=== PATIENT | male | born 1970 | race Two or more races ===

== ENCOUNTER 2016-10-17 11:19 | Day surgery (SDC) | payer BC, OTHER ==
[2016-10-17] MEDS ORDERED: PROPOFOL 200 MG/20 ML BOTTLE IV ONE (11:20)
[2016-10-17 12:12] LABS: BASOPHILS # (AUTO) 0.1 K/uL (0.0-8.0); BASOPHILS % (AUTO) 0.5 % (0.0-2.0); EOSINOPHILS % (AUTO) 0.4 % (0.0-7.0); HEMATOCRIT 48.7 % (40-50); HEMOGLOBIN 16.4 G/DL (14.0-18.0); LYMPHOCYTES # (AUTO) 0.8 K/UL (0.8-4.8); LYMPHOCYTES % (AUTO) 6.4 % (20.5-51.5); MEAN CORPUSCULAR HEMOGLOBIN 27.8 UUG (27.0-31.0); MEAN CORPUSCULAR HGB CONC 34 g/dL (32.0-37.0); MEAN CORPUSCULAR VOLUME 82.4 FL (82.0-92.0); MONOCYTES # (AUTO) 0.3 K/UL (0.1-1.30); MONOCYTES % (AUTO) 2.6 % (0.0-11.0); NEUTROPHILS % (AUTO) 90.1 % (38.5-71.5); PLATELET COUNT (AUTO) 264 K/UL (150-450); RED BLOOD CELL COUNT(AUTO) 5.91 MIL/UL (4.7-6.1); WHITE BLOOD COUNT (AUTO) 12.2 K/UL (4.0-11.2)
[2016-10-17 12:14] LABS: CREATININE 0.9 mg/dL (0.6-1.3); POTASSIUM 3.5 mmol/L (3.5-5.1)
[2016-10-17 12:28] LABS: *BILIRUBIN,URIN NEGATIVE (NEGATIVE); *BLOOD, URINE Trace-lysed (NEGATIVE); *CLARITY,URINE CLEAR (CLEAR); *COLOR,URINE YELLOW (YELLOW); *KETONES,URINE NEGATIVE (NEGATIVE); *PROTEIN,URINE NEGATIVE (NEGATIVE); *UROBILINOGEN,URINE 0.2 E.U./dl (NORMAL); LEUKOCYTE ESTERASE ,URINE NEGATIVE (NEGATIVE); NITRITE, URINE NEGATIVE (NEGATIVE); PH,URINE 5.5 (5.0-8.0); UGLUCOSE NEGATIVE (NEGATIVE)
[2016-10-17 12:51] LABS: BACTERIA,URINE NONE SEEN /HPF (NONE SEEN); MUCUS,URINE FEW /LPF (0-FEW); RBC,URINE 0-3 /HPF (0-3); SQUAMOUS EPITHELIAL CELL,UR FEW /HPF (NONE SEEN); WBC,URINE 0-3 /HPF (0-3)
[2016-10-17 14:17] LABS: BAND % (MANUAL) 5 % (0-10); LYMPHOCYTES % (MANUAL) 7 % (20-40); MONOCYTES % (MANUAL) 7 % (2-10); NEUTROPHILS % (MANUAL) 81 % (42-75)
== END 2016-10-17 15:30 | disposition home or self-care (01) ==
LOC: DS 11:19
PROVIDERS: ATTEND Internal Medicine Gastroenterology
DX: D64.9 Anemia, unspecified (principal); K22.10 Ulcer of esophagus without bleeding; K29.70 Gastritis, unspecified, without bleeding; I10 Essential (primary) hypertension; Z98.890 Other specified postprocedural states
CPT/HCPCS: 36415; 85025; 85610; 85730; A4217; A4663; J3490; J7120

== ENCOUNTER 2023-04-04 20:18 | Inpatient (IN) | payer BC, OTHER ==
[~2023-04-04] VITALS: Ht 165.1 cm; Wt 79.2 kg
[2023-04-04] MEDS ORDERED: REMEDY ESSENTIAL ZINC PASTE 113 GM TOP PRN (22:15)
[2023-04-04 22:19] VITALS: BP 128/69; TEMP 98.1; O2SAT 95
[2023-04-04] MEDS ORDERED: ACET325C7 PO (22:52)
[2023-04-04] MEDS ORDERED: DOCU100C36 PO (22:52)
[2023-04-04] MEDS ORDERED: MAGN400O6 PO (22:52)
[2023-04-04] MEDS ORDERED: HYDR1SYR IV (22:52)
[2023-04-04] MEDS ORDERED: PANT40TA2 PO (22:52)
[2023-04-04] MEDS ORDERED: ONDA2VIA4 IVP (22:52)
[2023-04-04] MEDS ORDERED: RING10003 IV (23:09)
[2023-04-04] MEDS ORDERED: ZINC113P3 TP (23:09)
[2023-04-04] MEDS ORDERED: ZOLP5TAB8 PO (23:09)
[2023-04-04] MEDS ORDERED: SODI62.58 IV (23:09)
[2023-04-05 04:47] VITALS: BP 134/75; TEMP 97.6; O2SAT 94
[2023-04-05 08:00] VITALS: BP 130/78; TEMP 97.5; O2SAT 95
[2023-04-05 14:49] VITALS: BP 128/75; TEMP 97.8; O2SAT 96
[2023-04-06 07:26] VITALS: BP 124/73; TEMP 98.3; O2SAT 94
[2023-04-06 07:32] LABS: ALANINE AMINOTRANSFERASE 8 U/L (16-63); ALBUMIN 2.1 g/dL (3.4-5.0); ALKALINE PHOSPHATASE 91 U/L (50-136); ASPARTATE AMINOTRANSFERASE 6 U/L (15-37); BILIRUBIN,TOTAL 0.5 mg/dL (0.2-1.0); CALCIUM 8.2 mg/dL (8.5-10.1); CARBON DIOXIDE 28 mmol/L (21-32); CHLORIDE 108 mmol/L (98-107); CHOLESTEROL 100 mg/dL (<200); CREATININE 0.6 mg/dL (0.6-1.3); GLUCOSE 92 mg/dL (74-106); HDL CHOLESTEROL 35 mg/dL (40-60); IRON, SERUM 40 ug/dL (50-175); MAGNESIUM 1.8 mg/dL (1.8-2.4); PHOSPHOROUS 3.7 mg/dL (2.5-4.9); POTASSIUM 3.7 mmol/L (3.5-5.1); SODIUM SERUM 142 mmol/L (136-145); TOTAL PROTEIN, SERUM 5.3 g/dL (6.4-8.2); TRIGLYCERIDES 83 MG/DL (30-150); UREA NITROGEN, BLOOD 8 mg/dL (7-18)
[2023-04-06 07:37] LABS: BASOPHILS % (AUTO) 0.8 % (0.0-2.0); EOSINOPHILS # (AUTO) 0.4 K/uL (0.0-0.7); EOSINOPHILS % (AUTO) 6.6 % (0.0-7.0); HEMATOCRIT 33.9 % (36.7-47.1); LYMPHOCYTES % (AUTO) 17.6 % (20.5-51.5); MEAN CORPUSCULAR HEMOGLOBIN 24.7 uug (23.8-33.4); MEAN CORPUSCULAR HGB CONC 32 g/dL (32.5-36.3); MEAN CORPUSCULAR VOLUME 76.5 fL (73.0-96.2); MONOCYTES # (AUTO) 0.4 K/uL (0.1-1.30); MONOCYTES % (AUTO) 7.7 % (0.0-11.0); NEUTROPHILS # (AUTO) 3.9 K/uL (1.8-8.9); NEUTROPHILS % (AUTO) 67.3 % (38.5-71.5); PLATELET COUNT (AUTO) 213 K/uL (152-348); RED BLOOD CELL COUNT(AUTO) 4.43 MIL/uL (4.06-5.63); RED CELL DISTRIBUTION WIDTH 40.7 % (12.1-16.2); WHITE BLOOD COUNT (AUTO) 5.8 K/uL (3.6-10.2)
[2023-04-06 07:44] LABS: THYROID STIMULATING HORMONE 2.246 mIU/mL (0.358-3.740)
[2023-04-06 07:51] LABS: DIFFERENTIAL COMMENT 1
[2023-04-06] MEDS ORDERED: IV NORMAL SALINE 250 ML IV ONE (08:08)
[2023-04-06] MEDS ORDERED: SWABABLE VALVE TRANSFER SET EA MC ONE (08:08)
[2023-04-06] MEDS ORDERED: IOHEXOL 300MG/ML 100 ML INFUS..BTL ONE (08:08)
[2023-04-06] MEDS: FERROUS SULFATE 325 MG TABEC PO SCH (09:02)
[2023-04-06] MEDS: CYANOCOBALAMIN 1000 MCG/ML VIAL IM SCH (09:02)
[2023-04-06 14:33] VITALS: BP 135/82; TEMP 97.6; O2SAT 94
[2023-04-06 20:23] VITALS: BP 129/75; TEMP 98; O2SAT 95
[2023-04-06] MEDS: MUPIROCIN 2% OINT 22 GM TUBE NS SCH (21:00)
[2023-04-07 06:02] LABS: BASOPHILS % (AUTO) 0.8 % (0.0-2.0); EOSINOPHILS # (AUTO) 0.3 K/uL (0.0-0.7); EOSINOPHILS % (AUTO) 5.6 % (0.0-7.0); HEMATOCRIT 36.9 % (36.7-47.1); HEMOGLOBIN 11.2 g/dL (12.5-16.3); LYMPHOCYTES # (AUTO) 1.1 K/uL (0.8-4.8); LYMPHOCYTES % (AUTO) 19.3 % (20.5-51.5); MEAN CORPUSCULAR HEMOGLOBIN 22.8 uug (23.8-33.4); MEAN CORPUSCULAR HGB CONC 30 g/dL (32.5-36.3); MEAN CORPUSCULAR VOLUME 75.3 fL (73.0-96.2); MONOCYTES # (AUTO) 0.5 K/uL (0.1-1.30); MONOCYTES % (AUTO) 7.9 % (0.0-11.0); NEUTROPHILS # (AUTO) 3.8 K/uL (1.8-8.9); NEUTROPHILS % (AUTO) 66.4 % (38.5-71.5); PLATELET COUNT (AUTO) 254 K/uL (152-348); RED BLOOD CELL COUNT(AUTO) 4.91 MIL/uL (4.06-5.63); RED CELL DISTRIBUTION WIDTH 40.4 % (12.1-16.2); WHITE BLOOD COUNT (AUTO) 5.8 K/uL (3.6-10.2)
[2023-04-07 06:08] LABS: DIFFERENTIAL COMMENT 1
[2023-04-07 06:31] LABS: ALBUMIN 2.2 g/dL (3.4-5.0); BILIRUBIN,TOTAL 0.5 mg/dL (0.2-1.0); CALCIUM 8.1 mg/dL (8.5-10.1); CREATININE 0.7 mg/dL (0.6-1.3); POTASSIUM 3.9 mmol/L (3.5-5.1); TOTAL PROTEIN, SERUM 5.7 g/dL (6.4-8.2)
[2023-04-07 06:46] VITALS: BP 141/79; TEMP 97.5; O2SAT 96
[2023-04-07 08:00] VITALS: BP 145/67; TEMP 97.7; O2SAT 94
[2023-04-07 16:00] VITALS: BP 130/66; TEMP 97.5; O2SAT 95
[2023-04-07 20:00] VITALS: BP 149/80; TEMP 97.7; O2SAT 93
[2023-04-08 04:00] VITALS: BP 146/71; TEMP 98; O2SAT 95
[2023-04-08 08:00] VITALS: BP 129/77; TEMP 97.9; O2SAT 96
[2023-04-08 16:00] VITALS: BP 126/75; TEMP 97.9; O2SAT 96
[2023-04-08 20:35] VITALS: BP 124/67; TEMP 98; O2SAT 96
[2023-04-09 05:47] VITALS: BP 126/77; TEMP 97.5; O2SAT 95
[2023-04-09 07:30] VITALS: BP 125/74; TEMP 97.7; O2SAT 95
[2023-04-09 08:00] LABS: BASOPHILS # (AUTO) 0.1 K/UL (0.0-0.2); BASOPHILS % (AUTO) 1.3 % (0.0-2.0); EOSINOPHILS # (AUTO) 0.3 K/uL (0.0-0.7); EOSINOPHILS % (AUTO) 5.4 % (0.0-7.0); HEMOGLOBIN 11.4 g/dL (12.5-16.3); LYMPHOCYTES % (AUTO) 18.7 % (20.5-51.5); MEAN CORPUSCULAR HGB CONC 31 g/dL (32.5-36.3); MEAN CORPUSCULAR VOLUME 75.1 fL (73.0-96.2); MONOCYTES # (AUTO) 0.4 K/uL (0.1-1.30); MONOCYTES % (AUTO) 7.9 % (0.0-11.0); NEUTROPHILS # (AUTO) 3.5 K/uL (1.8-8.9); NEUTROPHILS % (AUTO) 66.7 % (38.5-71.5); PLATELET COUNT (AUTO) 285 K/uL (152-348); RED BLOOD CELL COUNT(AUTO) 4.93 MIL/uL (4.06-5.63); RED CELL DISTRIBUTION WIDTH 40.1 % (12.1-16.2); WHITE BLOOD COUNT (AUTO) 5.3 K/uL (3.6-10.2)
[2023-04-09 08:07] LABS: DIFFERENTIAL COMMENT 1
[2023-04-09 15:40] VITALS: BP 132/81; TEMP 97.1; O2SAT 97
[2023-04-09 20:00] VITALS: BP 132/82; TEMP 97.6; O2SAT 93
[2023-04-10 04:00] VITALS: BP 143/78; TEMP 97.9; O2SAT 95
[2023-04-10 20:29] VITALS: BP 124/68; TEMP 97.2; O2SAT 95
[2023-04-11 04:30] VITALS: BP 112/63; TEMP 98; O2SAT 96
[2023-04-11] MEDS ORDERED: IV NS 1000 ML 1,000 ML IV PRN (06:00)
[2023-04-11 07:33] VITALS: BP 122/80; TEMP 97.6; O2SAT 97
[2023-04-11 11:49] LABS: BASOPHILS # (AUTO) 0.2 K/UL (0.0-0.2); BASOPHILS % (AUTO) 3.2 % (0.0-2.0); EOSINOPHILS # (AUTO) 0.2 K/uL (0.0-0.7); EOSINOPHILS % (AUTO) 3.3 % (0.0-7.0); HEMATOCRIT 38.1 % (36.7-47.1); HEMOGLOBIN 11.6 g/dL (12.5-16.3); LYMPHOCYTES # (AUTO) 0.8 K/uL (0.8-4.8); LYMPHOCYTES % (AUTO) 13.4 % (20.5-51.5); MEAN CORPUSCULAR HEMOGLOBIN 23.2 uug (23.8-33.4); MEAN CORPUSCULAR HGB CONC 31 g/dL (32.5-36.3); MEAN CORPUSCULAR VOLUME 75.9 fL (73.0-96.2); MONOCYTES # (AUTO) 0.5 K/uL (0.1-1.30); MONOCYTES % (AUTO) 8.2 % (0.0-11.0); NEUTROPHILS # (AUTO) 4.2 K/uL (1.8-8.9); NEUTROPHILS % (AUTO) 71.9 % (38.5-71.5); PLATELET COUNT (AUTO) 278 K/uL (152-348); RED BLOOD CELL COUNT(AUTO) 5.02 MIL/uL (4.06-5.63); RED CELL DISTRIBUTION WIDTH 38.5 % (12.1-16.2); WHITE BLOOD COUNT (AUTO) 5.8 K/uL (3.6-10.2)
[2023-04-11 12:25] LABS: DIFFERENTIAL COMMENT 1
[2023-04-11 16:56] VITALS: BP 129/78; TEMP 97.3; O2SAT 96
[2023-04-11 17:30] VITALS: BP 130/73; TEMP 97.3; O2SAT 98
[2023-04-11 19:10] VITALS: BP 117/73; TEMP 97.4; O2SAT 98
[2023-04-11] MEDS: HYDROCODONE/APAP 10-325 MG TABLET PO ONE (21:09)
[2023-04-11] MEDS: CEFAZOLIN 1 G in IV DEXTROSE 5% 50 ML IV SCH (23:06)
[2023-04-12 05:56] VITALS: BP 126/73; TEMP 97.8; O2SAT 96
[2023-04-12 07:22] LABS: BASOPHILS # (AUTO) 0.1 K/UL (0.0-0.2); BASOPHILS % (AUTO) 1.1 % (0.0-2.0); EOSINOPHILS # (AUTO) 0.2 K/uL (0.0-0.7); HEMATOCRIT 36.5 % (36.7-47.1); HEMOGLOBIN 11.4 g/dL (12.5-16.3); LYMPHOCYTES # (AUTO) 0.9 K/uL (0.8-4.8); MEAN CORPUSCULAR HEMOGLOBIN 23.9 uug (23.8-33.4); MEAN CORPUSCULAR HGB CONC 31 g/dL (32.5-36.3); MEAN CORPUSCULAR VOLUME 76.6 fL (73.0-96.2); MONOCYTES # (AUTO) 0.5 K/uL (0.1-1.30); MONOCYTES % (AUTO) 8.2 % (0.0-11.0); NEUTROPHILS # (AUTO) 4.4 K/uL (1.8-8.9); NEUTROPHILS % (AUTO) 71.7 % (38.5-71.5); PLATELET COUNT (AUTO) 266 K/uL (152-348); RED BLOOD CELL COUNT(AUTO) 4.76 MIL/uL (4.06-5.63); RED CELL DISTRIBUTION WIDTH 38.1 % (12.1-16.2); WHITE BLOOD COUNT (AUTO) 6.2 K/uL (3.6-10.2)
[2023-04-12 07:35] LABS: DIFFERENTIAL COMMENT 1
[2023-04-12 07:48] VITALS: BP 130/80; TEMP 97.6; O2SAT 95
[2023-04-12 15:36] VITALS: BP 120/63; TEMP 98.4; O2SAT 96
[2023-04-12 20:47] VITALS: BP 122/73; TEMP 97.6; O2SAT 96
[2023-04-13 00:50] VITALS: TEMP 97.9
[2023-04-13 04:55] VITALS: BP 131/83; TEMP 98.3; O2SAT 97
[2023-04-13 08:00] VITALS: BP 131/80; TEMP 98.1; O2SAT 98
[2023-04-13 15:57] VITALS: BP 128/84; TEMP 98.4; O2SAT 97
[2023-04-13 20:49] VITALS: BP 118/62; TEMP 97.8; O2SAT 95
[2023-04-14 00:27] VITALS: TEMP 97.8
[2023-04-14 07:21] LABS: BASOPHILS % (AUTO) 0.8 % (0.0-2.0); EOSINOPHILS # (AUTO) 0.4 K/uL (0.0-0.7); EOSINOPHILS % (AUTO) 6.2 % (0.0-7.0); HEMATOCRIT 36.1 % (36.7-47.1); LYMPHOCYTES # (AUTO) 1.2 K/uL (0.8-4.8); LYMPHOCYTES % (AUTO) 21.3 % (20.5-51.5); MEAN CORPUSCULAR HEMOGLOBIN 25.5 uug (23.8-33.4); MEAN CORPUSCULAR HGB CONC 33 g/dL (32.5-36.3); MEAN CORPUSCULAR VOLUME 76.8 fL (73.0-96.2); MONOCYTES # (AUTO) 0.5 K/uL (0.1-1.30); MONOCYTES % (AUTO) 8.4 % (0.0-11.0); NEUTROPHILS # (AUTO) 3.6 K/uL (1.8-8.9); NEUTROPHILS % (AUTO) 63.3 % (38.5-71.5); PLATELET COUNT (AUTO) 266 K/uL (152-348); RED CELL DISTRIBUTION WIDTH 37.8 % (12.1-16.2); WHITE BLOOD COUNT (AUTO) 5.7 K/uL (3.6-10.2)
[2023-04-14 07:26] LABS: CREATININE 0.7 mg/dL (0.6-1.3); POTASSIUM 4.2 mmol/L (3.5-5.1)
[2023-04-14 07:37] LABS: DIFFERENTIAL COMMENT 1
== END 2023-04-14 14:10 | disposition home or self-care (01) | DRG 949 ==
PROVIDERS: ADMIT Physical Medicine & Rehabilitation Pain Medicine; ATTEND Physical Medicine & Rehabilitation Pain Medicine
DX: Z48.3 Aftercare following surgery for neoplasm (principal); C18.4 Malignant neoplasm of transverse colon; F84.0 Autistic disorder; D68.59 Other primary thrombophilia; E44.0 Moderate protein-calorie malnutrition; C77.2 Secondary and unspecified malignant neoplasm of intra-abdominal lymph nodes; E88.09 Other disorders of plasma-protein metabolism, not elsewhere classified; I10 Essential (primary) hypertension; K42.9 Umbilical hernia without obstruction or gangrene; K44.9 Diaphragmatic hernia without obstruction or gangrene; D50.9 Iron deficiency anemia, unspecified; E66.3 Overweight; K29.70 Gastritis, unspecified, without bleeding; E53.8 Deficiency of other specified B group vitamins
CPT/HCPCS: 36415; 71045; 71260; 83550; 83735; 84100; 84443; 85025; 85610; 85730; 97535-GO-CO; A4663; J0690; J3420; J7040; Q9967

== ENCOUNTER → 2023-04-11 | Day surgery (SDC) | payer BC, OTHER ==
[~2023-04-11] MED LIST: CEFAZOLIN 1 G VIAL ONE; DEXAMETHASONE SOD PHOSPHATE 4 MG INJ ONE; FENTANYL CITRATE 100 MCG/2 ML AMPUL ONE; HEPARIN/NS 500 ML ONE; KETAMINE HCL 500 MG/5 ML VIAL ONE; LIDOCAINE HCL 1% 20 ML VIAL ONE; LIDOCAINE-MPF 2% 5 ML VIAL ONE; MIDAZOLAM HCL 2 MG/2 ML VIAL ONE; ONDANSETRON 4 MG/2 ML VIAL ONE; PROPOFOL 200 MG/20 ML BOTTLE ONE
[2023-04-11 16:26] VITALS: TEMP 97.6
== END | disposition home or self-care (01) ==
LOC: DS 14:41
PROVIDERS: ATTEND Surgery Vascular Surgery
DX: C18.9 Malignant neoplasm of colon, unspecified (principal); J90 Pleural effusion, not elsewhere classified; Z86.2 Personal history of diseases of the blood and blood-forming organs and certain disorders involving the immune mechanism; Z98.890 Other specified postprocedural states
CPT/HCPCS: 36561; 71045; 76000; C1788; J0690; J1100; J1644; J2250; J2405; J3010; J3490; A4649